=== PATIENT | male | born 1950 | race Caucasian/White ===

== ENCOUNTER → 2020-08-09 | Outpatient (CLI) | payer OTHER ==
--- NOTE | 2020-08-17 09:26 | REP ---
INDICATION: D02.22 CARCINOMA IN SITE OF LEFT BRONCHUS OR LUNG. NEWLY DIAGNOSED LEFT LOWER LOBE NODULE POSITIVE FOR ADENOCARCINOMA. CT needle biopsy left lower lobe path report moderately differentiated adenocarcinoma. CT chest report spiculated lesion left lower lobe increasing in size 1.7 x 1.2 cm. COMPARISON: None. TECHNIQUE: FORTY-NINE minutes following the intravenous injection of a 14.1 mCi dose of F-18 FDG, three-dimensional PET scintigraphy is acquired from the skull base to the proximal thighs. Triplanar noncontrast CT scanning is acquired through the same anatomic range for attenuation correction, and image registration with scan parameters optimized to minimize radiation exposure to the patient. PET scintigraphy and CT datasets were fused and displayed on a workstation with multiplanar and projection display capability. FINDINGS: Head and neck soft tissues are unremarkable. In the thorax, there is a somewhat spiculated 1.5 cm nodule in the left lower lobe, just above the diaphragm. This does not show hypermetabolic uptake, maximum SUV value 1.82. No other abnormal hypermetabolic uptake is seen within the thorax. No abnormal jose antonio uptake is seen. No abnormal adrenal uptake is observed. Within the abdomen and pelvis there is normal FDG distribution to the liver, spleen, gastrointestinal, and genitourinary tracts. No abnormal uptake is seen within the abdomen or pelvis. In the upper abdominal wall in the epigastrium, there is some inflamed fat associated with what appears to be a small epigastric hernia. Maximum standard uptake value here is 3.77. Also noted as an incidental finding is for postsurgical fusion hardware in the spinous processes of the lower lumbar spine. There is mild unilateral left-sided gynecomastia. IMPRESSION: Malignant nodule in the left lower lobe is not hypermetabolic. There is no scintigraphic evidence of metastatic disease. <Electronically signed by Kenny Cummings > 08/17/20 [id number]
== END ==
LOC: M PLARAD 15:29
PROVIDERS: ATTEND Nurse Practitioner Family
DX: C34.32 Malignant neoplasm of lower lobe, left bronchus or lung (principal); N62 Hypertrophy of breast; Z98.1 Arthrodesis status
CPT/HCPCS: 78815; A9552

== ENCOUNTER 2021-04-11 14:06 | Emergency (ER) | payer OTHER, BC, MEDICARE ==
[~2021-04-11] VITALS: Ht 185.4 cm; Wt 113.6 kg
[2021-04-11] MEDS ORDERED: FOLI1TAB11 PO (14:23)
[2021-04-11] MEDS ORDERED: OXYC-1 PO (14:23)
[2021-04-11] MEDS ORDERED: ACET1TAB16 PO (14:23)
[2021-04-11] MEDS ORDERED: LISI40TA4 (14:23)
[2021-04-11] MEDS ORDERED: GABA-282 (14:23)
--- NOTE | 2021-04-11 14:44 | REP ---
INDICATION: lung pain COMPARISON: None. TECHNIQUE: PA and lateral. FINDINGS: Mediastinum and cardiac silhouette are normal. Vague opacity in the left base may reflect lingular atelectasis/infiltrate and should be correlated clinically. No effusion. No further consolidation. No pneumothorax. Skeletal structures intact. IMPRESSION: Cannot exclude subtle left lower lobe/lingular airspace disease. <Electronically signed by Richard Howe > 04/11/21 [id number]
[2021-04-11] MEDS ORDERED: ONDANSETRON 4MG/2ML VIAL IV ONE (16:55)
[2021-04-11] MEDS ORDERED: NS 1,000 ML IV ONE (16:55)
[2021-04-11 17:05] LABS: HEMATOCRIT 45.4 % (42.0-52.0); HEMOGLOBIN 14.8 g/dl (13.5-17.5); MEAN CORPUSCULAR HEMOGLOBIN 27.1 pg (27.0-33.0); MEAN CORPUSCULAR HGB CONC 32.6 g/dl (32.0-36.5); PLATELET COUNT, AUTOMATED 263 10^3/uL (150-450); RED BLOOD COUNT 5.47 10^6/uL (4.30-6.10); WHITE BLOOD COUNT 14.3 10^3/uL (4.0-10.0)
[2021-04-11 17:17] LABS: ALBUMIN 4.5 GM/DL (3.2-5.2); BILIRUBIN,DIRECT 0.2 MG/DL (0.0-0.2); BILIRUBIN,TOTAL 0.4 MG/DL (0.2-1.0); CALCIUM LEVEL 10.1 MG/DL (8.8-10.2); CREATININE FOR GFR 1.43 MG/DL (0.70-1.30); GLOMERULAR FILTRATION RATE 51.8 (>42); POTASSIUM SERUM 3.8 MEQ/L (3.5-5.1); TOTAL PROTEIN 8.2 GM/DL (6.4-8.2)
[2021-04-11] MEDS ORDERED: ISOVUE-370 76% 100ML VIAL As Ordered ONE (17:57)
[2021-04-11 17:58] LABS: RSV AMPLIFICATION NEGATIVE (NEGATIVE)
--- NOTE | 2021-04-11 19:18 | REPVR ---
PROCEDURE INFORMATION: Exam: CT Abdomen And Pelvis Without Contrast Exam date and time: 04/11/2021 5:42 PM Age: 70 years old Clinical indication: Vomiting TECHNIQUE: Imaging protocol: Computed tomography of the abdomen and pelvis without contrast. Radiation optimization: All CT scans at this facility use at least one of these dose optimization techniques: automated exposure control; mA and/or kV adjustment per patient size (includes targeted exams where dose is matched to clinical indication); or iterative reconstruction. COMPARISON: PT PET/CT Skull/mid thigh 08/09/2020 5:18 PM FINDINGS: Liver: Normal. No mass. Gallbladder and bile ducts: Cholecystectomy clips. Pancreas: Normal. No ductal dilation. Spleen: Normal. No splenomegaly. Adrenal glands: Normal. No mass. Kidneys and ureters: Normal. No hydronephrosis. Stomach and bowel: Diverticulosis of the sigmoid colon. Appendix: No evidence of appendicitis. Intraperitoneal space: Unremarkable. No free air. No significant fluid collection. Vasculature: Atherosclerotic calcification of the abdominal aorta and bilateral iliac vessels. Lymph nodes: Unremarkable. No enlarged lymph nodes. Urinary bladder: Unremarkable as visualized. Reproductive: Unremarkable as visualized. Bones/joints: Unremarkable. No acute fracture. Grade 1 anterolisthesis of L4 over L5. Spinous process hardware at L4-L5. Soft tissues: Unremarkable. IMPRESSION: No acute abdominal or pelvic abnormality. Electronically signed by: Ayden Simpson On 04/11/2021 19:18:00 PM
[2021-04-11 19:31] VITALS: BP 181/84
[2021-04-11] MEDS ORDERED: AUGMENTIN 875 MG TAB PO ONE (19:40)
[2021-04-11] MEDS ORDERED: AUGM875T28 PO (19:41)
[2021-04-11] MEDS ORDERED: AZIT500T5 PO (19:41)
== END 2021-04-11 20:02 | disposition home or self-care (01) ==
LOC: M ED 14:06
DX: R11.10 Vomiting, unspecified (principal); I10 Essential (primary) hypertension; Z86.19 Personal history of other infectious and parasitic diseases; Z85.118 Personal history of other malignant neoplasm of bronchus and lung; Z90.2 Acquired absence of lung [part of]; K22.70 Barrett's esophagus without dysplasia; R91.8 Other nonspecific abnormal finding of lung field
CPT/HCPCS: 71046; 74176; 80048; 80076; 83690; 85027; 87631; 96361; 96374; 99284; J2405

== ENCOUNTER → 2023-03-06 | Outpatient (CLI) | payer OTHER ==
[~2023-03-06] MED LIST: ACET300T48 PO; AUGM875T28 PO; AZIT500T5 PO; FOLI1TAB11 PO; GABA-282; LISI40TA4; OXYC-1 PO
== END ==
LOC: M PAIN 13:00
PROVIDERS: ATTEND Nurse Practitioner Family
DX: M96.1 Postlaminectomy syndrome, not elsewhere classified (principal); M51.16 Intervertebral disc disorders with radiculopathy, lumbar region; G89.29 Other chronic pain; Z79.899 Other long term (current) drug therapy

== ENCOUNTER → 2023-04-17 | Outpatient (CLI) | payer OTHER ==
[~2023-04-17] MED LIST changes: +TRIAMCINOLONE ACETONIDE SUSP 40MG/ML 1ML VIAL As Ordered ONE
== END ==
LOC: M PAIN 14:15
PROVIDERS: ATTEND Anesthesiology
DX: M79.18 Myalgia, other site (principal); G89.29 Other chronic pain; Z79.84 Long term (current) use of oral hypoglycemic drugs; Z79.899 Other long term (current) drug therapy
CPT/HCPCS: 20552; J0665; J3301

== ENCOUNTER → 2023-05-17 | Outpatient (CLI) | payer OTHER ==
[~2023-05-17] MED LIST changes: +BUPR1FIL35 BUC; +DICL100G10 TOP; +ESOM0.1C PO; +FLUT15.820; +LISI20TA37 PO; +LISI40TA4 PO; +METF500T13 PO; +ONDA-83 PO; +PROA1AER2 INH; -TRIAMCINOLONE ACETONIDE SUSP 40MG/ML 1ML VIAL As Ordered ONE; +VIIB20TA PO
== END ==
LOC: M PAIN 14:30
PROVIDERS: ATTEND Nurse Practitioner Family
DX: M79.10 Myalgia, unspecified site (principal); K21.9 Gastro-esophageal reflux disease without esophagitis; M54.50 Low back pain, unspecified; I10 Essential (primary) hypertension; F41.9 Anxiety disorder, unspecified; K22.70 Barrett's esophagus without dysplasia; Z79.84 Long term (current) use of oral hypoglycemic drugs; Z79.899 Other long term (current) drug therapy

== ENCOUNTER 2023-05-18 06:48 | Day surgery (SDC) | payer MEDICARE, OTHER ==
[~2023-05-18] VITALS: Ht 185.4 cm; Wt 109.3 kg
[2023-05-18] MEDS ORDERED: fentaNYL 100 MCG/2 ML INJECTION As Ordered ONE (07:18)
[2023-05-18] MEDS ORDERED: LIDOCAINE 2% 100MG/5ML SDV (FOR ANES.) As Ordered ONE (07:18)
[2023-05-18] MEDS ORDERED: ONDANSETRON 4MG 2ML VIAL As Ordered ONE (07:20)
[2023-05-18] MEDS ORDERED: LR 1,000 ML IV SCH (07:55)
[2023-05-18] MEDS ORDERED: propofoL 200 MG/20 ML VIAL As Ordered ONE (08:12)
[2023-05-18] MEDS ORDERED: GLYCOPYRROLATE INJ 0.2 MG/ML 2 ML VIAL As Ordered ONE (08:13)
[2023-05-18] MEDS ORDERED: ACETAMINOPHEN 1000MG 100ML IV BAG As Ordered ONE (09:34)
[2023-05-18] MEDS ORDERED: fentaNYL 100 MCG/2 ML INJECTION IV PRN (10:05)
[2023-05-18] MEDS ORDERED: oxyCODONE 5MG TAB PO PRN (10:05)
[2023-05-18] MEDS ORDERED: ONDANSETRON 4MG 2ML VIAL IV PRN (10:05)
[2023-05-18] MEDS ORDERED: MORPHINE 2 MG/ML 1ML VIAL IV PRN (10:05)
[2023-05-18 11:10] VITALS: BP 140/63; TEMP 97.5; O2SAT 100
== END 2023-05-18 11:12 | disposition home or self-care (01) ==
LOC: M SDC 06:48
PROVIDERS: ATTEND Orthopaedic Surgery Hand Surgery
DX: G56.02 Carpal tunnel syndrome, left upper limb (principal); E11.40 Type 2 diabetes mellitus with diabetic neuropathy, unspecified; I12.9 Hypertensive chronic kidney disease with stage 1 through stage 4 chronic kidney disease, or unspecified chronic kidney disease; E11.22 Type 2 diabetes mellitus with diabetic chronic kidney disease; N18.9 Chronic kidney disease, unspecified; Z87.19 Personal history of other diseases of the digestive system; Z85.118 Personal history of other malignant neoplasm of bronchus and lung; Z79.84 Long term (current) use of oral hypoglycemic drugs; Z79.899 Other long term (current) drug therapy
CPT/HCPCS: 29848; J0131; J0665; J1100; J2405; J3010

== ENCOUNTER → 2023-06-21 | Outpatient (CLI) | payer OTHER | LOC: M PAIN 14:00 | PROVIDERS: ATTEND Nurse Practitioner Family | DX: M79.18 Myalgia, other site (principal); G89.29 Other chronic pain; M54.50 Low back pain, unspecified; I10 Essential (primary) hypertension; K21.9 Gastro-esophageal reflux disease without esophagitis; M54.2 Cervicalgia; K22.70 Barrett's esophagus without dysplasia; F43.12 Post-traumatic stress disorder, chronic; F41.9 Anxiety disorder, unspecified; Z79.84 Long term (current) use of oral hypoglycemic drugs; Z79.899 Other long term (current) drug therapy ==

== ENCOUNTER → 2023-08-24 | Outpatient (CLI) | payer OTHER ==
[~2023-08-24] MED LIST changes: +TRIAMCINOLONE ACETONIDE SUSP 40MG/ML 1ML VIAL As Ordered ONE
== END ==
LOC: M PAIN 16:00
PROVIDERS: ATTEND Anesthesiology
DX: M79.18 Myalgia, other site (principal); G89.29 Other chronic pain; I10 Essential (primary) hypertension; K21.9 Gastro-esophageal reflux disease without esophagitis; K22.70 Barrett's esophagus without dysplasia; F41.9 Anxiety disorder, unspecified; M54.16 Radiculopathy, lumbar region; Z79.84 Long term (current) use of oral hypoglycemic drugs; Z79.899 Other long term (current) drug therapy
CPT/HCPCS: 20552; J0665; J3301

== ENCOUNTER → 2023-10-25 | Outpatient (CLI) | payer OTHER ==
[~2023-10-25] MED LIST changes: -ESOM0.1C PO; +ESOM20CA2 PO; -TRIAMCINOLONE ACETONIDE SUSP 40MG/ML 1ML VIAL As Ordered ONE
== END ==
LOC: M PAIN 11:15
PROVIDERS: ATTEND Nurse Practitioner Family
DX: M79.18 Myalgia, other site (principal); G89.29 Other chronic pain; I10 Essential (primary) hypertension; K21.9 Gastro-esophageal reflux disease without esophagitis; M54.2 Cervicalgia; K22.70 Barrett's esophagus without dysplasia; F41.9 Anxiety disorder, unspecified; M54.17 Radiculopathy, lumbosacral region; Z79.899 Other long term (current) drug therapy; Z79.84 Long term (current) use of oral hypoglycemic drugs

== ENCOUNTER → 2023-11-09 | Outpatient (CLI) | payer OTHER | LOC: M PAIN 11:45 | PROVIDERS: ATTEND Nurse Practitioner Family | DX: M79.18 Myalgia, other site (principal); G89.29 Other chronic pain; M54.17 Radiculopathy, lumbosacral region; I10 Essential (primary) hypertension; K21.9 Gastro-esophageal reflux disease without esophagitis; M54.2 Cervicalgia; K22.70 Barrett's esophagus without dysplasia; F41.9 Anxiety disorder, unspecified; E11.9 Type 2 diabetes mellitus without complications; Z79.899 Other long term (current) drug therapy; Z79.84 Long term (current) use of oral hypoglycemic drugs ==

== ENCOUNTER → 2023-12-18 | Outpatient (REF) | payer BC, MEDICARE, OTHER ==
[2023-12-18 17:01] LABS: PLATELET COUNT, AUTOMATED 150 10^3/uL (150-450)
[2023-12-18 17:09] LABS: INR 1.03; PARTIAL THROMBOPLASTIN TIME 29.7 SECONDS (24.8-34.2); PROTHROMBIN TIME 13.2 SECONDS (12.5-14.5)
== END ==
LOC: M LABDRAWC 16:35
PROVIDERS: ATTEND Physical Medicine & Rehabilitation
DX: Z01.812 Encounter for preprocedural laboratory examination (principal); Z79.01 Long term (current) use of anticoagulants

== ENCOUNTER → 2024-02-12 | Outpatient (CLI) | payer BC, MEDICARE, OTHER ==
[~2024-02-12] MED LIST changes: +GABA-1172; -GABA-282
== END ==
LOC: M PLAIMG 09:26
PROVIDERS: ATTEND Registered Nurse
DX: I77.810 Thoracic aortic ectasia (principal); I45.10 Unspecified right bundle-branch block; I11.9 Hypertensive heart disease without heart failure; I08.3 Combined rheumatic disorders of mitral, aortic and tricuspid valves; I27.20 Pulmonary hypertension, unspecified

== ENCOUNTER → 2024-04-17 | Outpatient (CLI) | payer OTHER ==
[~2024-04-17] MED LIST changes: +TRIAMCINOLONE ACETONIDE SUSP 40MG/ML 1ML VIAL As Ordered ONE; +diazePAM 5MG TABLET As Ordered ONE; +oxyCODONE 5MG TAB As Ordered ONE
== END ==
LOC: M PAIN 16:00
PROVIDERS: ATTEND Anesthesiology
DX: M79.18 Myalgia, other site (principal); G89.29 Other chronic pain; M54.50 Low back pain, unspecified; I10 Essential (primary) hypertension; K21.9 Gastro-esophageal reflux disease without esophagitis; M54.2 Cervicalgia; F41.9 Anxiety disorder, unspecified; E11.9 Type 2 diabetes mellitus without complications; Z79.84 Long term (current) use of oral hypoglycemic drugs; Z79.899 Other long term (current) drug therapy
CPT/HCPCS: 20553; J0665; J3301

== ENCOUNTER → 2024-05-05 | Outpatient (CLI) | payer OTHER, MEDICARE, BC ==
[~2024-05-05] MED LIST changes: -TRIAMCINOLONE ACETONIDE SUSP 40MG/ML 1ML VIAL As Ordered ONE; -diazePAM 5MG TABLET As Ordered ONE; -oxyCODONE 5MG TAB As Ordered ONE
== END ==
LOC: M SOG 07:56
PROVIDERS: ATTEND Physician Assistant
DX: M25.531 Pain in right wrist (principal); S52.501A Unspecified fracture of the lower end of right radius, initial encounter for closed fracture; X58.XXXA Exposure to other specified factors, initial encounter; Y92.9 Unspecified place or not applicable; Y93.9 Activity, unspecified; Y99.9 Unspecified external cause status; M19.031 Primary osteoarthritis, right wrist

== ENCOUNTER 2024-05-07 08:52 | Day surgery (SDC) | payer MEDICARE, BC ==
[~2024-05-07] VITALS: Ht 185.4 cm; Wt 97.6 kg
[2024-05-07] MEDS: CEFUROXIME 1MG/0.1ML INTRACAMERAL INJ As Ordered ONE (07:12)
[~2024-05-07 08:52] MED LIST changes: +PHENYLEPHRINE 10% OPHTH SOL 5ML OD PRN
[2024-05-07] MEDS: LIDOCAINE 3.5 % 1ML OPHTH TOPICAL GEL OU ONE (10:41)
[2024-05-07] MEDS: OFLOXACIN 0.3 % (OCUFLOX) OPTH SOL 5ML OD ONE (10:41)
[2024-05-07] MEDS: TROPICAMIDE 1% OPHTH SOLN 15ML OD SCH (10:41)
[2024-05-07] MEDS: CYCLOPENTOLATE 1% OPHTH SOLN 2ML BTL OD SCH (10:41)
[2024-05-07] MEDS: PHENYLEPHRINE 2.5% OPHTH SOL 2ML OD SCH (10:41)
[2024-05-07] MEDS ORDERED: fentaNYL 100 MCG/2 ML INJECTION As Ordered ONE (10:55)
[2024-05-07] MEDS ORDERED: MIDAZOLAM INJ 2MG/2ML VIAL As Ordered ONE (10:55)
[2024-05-07] MEDS: LIDOCAINE 1% SDV 5ML VIAL As Ordered ONE (11:46)
[2024-05-07] MEDS: BSS IRRIG/VANCO(10MG)/TOBRA(5MG)/EPINEPH(1:1000-0.5CC)500ML BAG-ORONLY As Ordered ONE (11:47)
[2024-05-07 11:59] VITALS: BP 178/79; TEMP 97.2; O2SAT 96
== END 2024-05-07 12:12 | disposition home or self-care (01) ==
LOC: M SDC 08:52
PROVIDERS: ATTEND Ophthalmology
DX: E11.36 Type 2 diabetes mellitus with diabetic cataract (principal); H25.11 Age-related nuclear cataract, right eye; I10 Essential (primary) hypertension; E11.40 Type 2 diabetes mellitus with diabetic neuropathy, unspecified; N28.9 Disorder of kidney and ureter, unspecified; K21.9 Gastro-esophageal reflux disease without esophagitis; Z79.899 Other long term (current) drug therapy; Z79.84 Long term (current) use of oral hypoglycemic drugs; Z85.118 Personal history of other malignant neoplasm of bronchus and lung; M21.371 Foot drop, right foot; Z87.19 Personal history of other diseases of the digestive system; Z90.2 Acquired absence of lung [part of]
CPT/HCPCS: 66984; 92015; J0697; J2250; J3010; V2788

== ENCOUNTER 2024-06-04 07:21 | Day surgery (SDC) | payer OTHER, MEDICARE, BC ==
[~2024-06-04] VITALS: Ht 182.9 cm; Wt 93.1 kg
[~2024-06-04 07:21] MED LIST changes: +MIDAZOLAM INJ 2MG/2ML VIAL As Ordered ONE; -PHENYLEPHRINE 10% OPHTH SOL 5ML OD PRN; +PHENYLEPHRINE 10% OPHTH SOL 5ML OS PRN
[2024-06-04] MEDS ORDERED: ATOM25CA PO (08:54)
[2024-06-04] MEDS ORDERED: ROPI0.5T33 PO (08:54)
[2024-06-04] MEDS ORDERED: ACET-907 PO (08:54)
[2024-06-04] MEDS: PHENYLEPHRINE 2.5% OPHTH SOL 2ML OS SCH (08:59)
[2024-06-04] MEDS: CYCLOPENTOLATE 1% OPHTH SOLN 2ML BTL OS SCH (08:59)
[2024-06-04] MEDS: OFLOXACIN 0.3 % (OCUFLOX) OPTH SOL 5ML OS ONE (08:59)
[2024-06-04] MEDS: TROPICAMIDE 1% OPHTH SOLN 15ML OS SCH (08:59)
[2024-06-04] MEDS: LIDOCAINE 3.5 % 1ML OPHTH TOPICAL GEL OU ONE (08:59)
[2024-06-04] MEDS: LIDOCAINE 1% SDV 5ML VIAL As Ordered ONE (09:23)
[2024-06-04] MEDS ORDERED: fentaNYL 100 MCG/2 ML INJECTION As Ordered ONE (09:25)
[2024-06-04] MEDS: BSS IRRIG/VANCO(10MG)/TOBRA(5MG)/EPINEPH(1:1000-0.5CC)500ML BAG-ORONLY As Ordered ONE (09:27)
[2024-06-04] MEDS: CEFUROXIME 1MG/0.1ML INTRACAMERAL INJ As Ordered ONE (09:27)
[2024-06-04 09:38] VITALS: BP 150/84; TEMP 96.9; O2SAT 100
== END 2024-06-04 09:55 | disposition home or self-care (01) ==
LOC: M SDC 07:21
PROVIDERS: ATTEND Ophthalmology
DX: H25.12 Age-related nuclear cataract, left eye (principal); I10 Essential (primary) hypertension; E11.9 Type 2 diabetes mellitus without complications; K22.70 Barrett's esophagus without dysplasia; F43.10 Post-traumatic stress disorder, unspecified; K57.92 Diverticulitis of intestine, part unspecified, without perforation or abscess without bleeding; K21.9 Gastro-esophageal reflux disease without esophagitis; Z85.118 Personal history of other malignant neoplasm of bronchus and lung; F41.9 Anxiety disorder, unspecified; F32.A Depression, unspecified; Z79.84 Long term (current) use of oral hypoglycemic drugs; Z79.899 Other long term (current) drug therapy
CPT/HCPCS: 66984; 92015; J0697; J2250; J3010; V2788

== ENCOUNTER → 2024-06-27 | Outpatient (CLI) | payer BC, MEDICARE, OTHER ==
[~2024-06-27] MED LIST changes: +ACET-907 PO; +ATOM25CA PO; -MIDAZOLAM INJ 2MG/2ML VIAL As Ordered ONE; -PHENYLEPHRINE 10% OPHTH SOL 5ML OS PRN; +ROPI0.5T33 PO
== END ==
LOC: M SOG 07:53
PROVIDERS: ATTEND Physician Assistant
DX: M25.531 Pain in right wrist (principal); S52.501A Unspecified fracture of the lower end of right radius, initial encounter for closed fracture; X58.XXXA Exposure to other specified factors, initial encounter; Y92.9 Unspecified place or not applicable; Y93.9 Activity, unspecified; Y99.9 Unspecified external cause status; M19.031 Primary osteoarthritis, right wrist